=== PATIENT | male | born 2005 | race Caucasian/White ===

== ENCOUNTER 2025-03-03 23:40 | Emergency (ER) | payer MEDICAID, SELFPAY ==
--- NOTE | ~2025-03-03 | CT_ITS ---
EXAMINATION: CT abdomen pelvis w con DATE: 03/04/2025 01:55 INDICATION: Unintentional 100 pound weight loss TECHNIQUE: Computed tomography (CT) of the abdomen and pelvis was performed with 100 cc Omnipaque 350 intravenous contrast. The dose-length product was 272.87 mGy-cm. Automated exposure control and iter ative reconstruction technique were employed. COMPARISON: None. FINDINGS: Lung bases unremarkable. Heart size normal. Fatty infiltration of the liver. The spleen, pa ncreas, adrenal glands and kidneys are unremarkable. Gallbladder is contracted. Nonobstructive bowel gas pattern. No significant vascular abnormality. No lymphadenopathy. No acute osseous abnormality. M ild dextrocurvature of the lumbar spine. IMPRESSION: 1. No acute abdominal abnormality. Reviewed, dictated and finalized at location A.
[2025-03-03 23:41] VITALS: BP 145/69; PULSE 88; RESP 14; TEMP 36.4; O2SAT 99
[2025-03-04 00:19] LABS: Hematocrit 42.7 % (42.0-52.0); Hemoglobin 14.5 g/dL (14.0-18.0); Immature Granulocyte Percent A 0.1 % (0-0.5); Lymphocytes Absolute Auto 3.14 K/mm3 (0.9-3.2); Mean Corpuscular HGB Conc 34.0 g/dl (32-36); Mean Corpuscular Hemoglobin 27.5 pg (26-34); Mean Corpuscular Volume 81.0 fl (80-100); Nucleated Red Blood Cells Absolute Auto 0.000 K/mm3 (0.0-0.012); Nucleated Red Blood Cells Perc 0.0 % (0.0-0.2); Platelet Count Result 311 k/mm3 (150-375); Red Blood Count 5.27 M/mm3 (4.6-6.20); White Blood Count 7.3 K/mm3 (4.5-10.0)
[2025-03-04 00:24] VITALS: BP 122/75
[2025-03-04 00:25] VITALS: BP 118/71; BP 135/78
[2025-03-04 00:39] LABS: Alanine Aminotransferase 22 U/L (6-50); Albumin Level 5.0 g/dL (3.7-5.6); Alkaline Phosphatase 79 U/L (58-237); Anion Gap 14 mmol/L (4-12); Aspartate Amino Transferase 31 U/L (17-59); Bilirubin,Total 1.2 mg/dL (0.2-1.3); Blood Urea Nitrogen 15 mg/dL (8-21); Calcium 9.8 mg/dL (8.9-10.7); Carbon Dioxide 25 mmol/L (22-30); Chloride 101 mmol/L (98-107); Estimated CRCL calculation 117 ml/min; Estimated Glomerular Filt Rate > 60; Glucose 102 mg/dL (65-110); Lipase 101 U/L (23-300); Potassium 3.1 mmol/L (3.4-5.0); Sodium 140 mmol/L (134-143); Total Protein 8.1 g/dL (6.3-8.6)
--- NOTE | 2025-03-04 01:05 | ED.NAVMDI ---
HPI - Nausea/Vomiting/Diarrhea General Chief complaint: Nausea/Vomiting/Diarrhea Stated complaint: throwing up every hour x 1 week Time Seen by Provider: 03/04/25 00:14 History of Present Illness HPI Narrative: 19-year-old male presenting to the emergency depart with nausea vomiting persistent for last month. Patient states he has had unintentional 100 lb weight loss for last 6 months and wakes up frequently throughout the night drenched in sweat feeling like he is nauseous and having vomit. Endorsing abdominal pain as well. He was otherwise in his normal state of health last year, no fevers, diarrhea, constipation or bloody bowel movements. No history of malignancy to his knowledge. No strong family history of malignancy PE he was otherwise in his normal state of health. Endorses daily marijuana use. Tried some Pepto-Bismol and a stool softener at home without any significant relief of symptoms. States he vomits up to twice a day every day. Related Data Allergies Allergy/AdvReac Type Severity Reaction Status Date / Time No Known Allergies Allergy Unverified 06/21/14 15:43 Review of Systems Review of Systems: As reviewed above in HPI Exam Narrative: GENERAL: [Well-appearing, well-nourished, and in no acute distress.] HEAD: [Normocephalic, atraumatic.] EYES: [PERRLA and EOMI.] ENT: Nares clear, no rhinorrhea or epistaxis. Mucous membranes moist. NECK: Supple. CHEST: [Clear to auscultation. No respiratory distress.] HEART: [Regular rate and rhythm]. No murmur heard. [Normal peripheral pulses.] ABDOMEN: [Soft, nondistended], [nontender], [No rigidity or guarding] EXTREMITIES: Normal range of motion. [No edema.] SKIN: Warm, dry, no rash. NEURO: [No focal deficits]. Alert and oriented [x3.] PSYCH: [Normal mood and affect.] Course Vital Signs Vital signs: Vital Signs Temperature 36.4 C 03/03/25 23:41 Pulse Rate 88 03/03/25 23:41 Respiratory Rate 14 03/03/25 23:41 Blood Pressure 145/69 H 03/03/25 23:41 Pulse Oximetry 99 03/03/25 23:41 Oxygen Delivery Room Air 03/03/25 23:41 Temperature 36.4 C 03/03/25 23:41 Pulse Rate 88 03/03/25 23:41 Respiratory Rate 14 03/03/25 23:41 Blood Pressure 135/78 03/04/25 00:25 Pulse Oximetry 99 03/03/25 23:41 Oxygen Delivery Room Air 03/03/25 23:41 MDM - Nausea/Vomiting/Diarrhea MDM Narrative Medical decision making narrative: 19-year-old male presenting to the emergency depart with nausea vomiting persistent for last month. Patient states he has had unintentional 100 lb weight loss for last 6 months and wakes up frequently throughout the night drenched in sweat feeling like he is nauseous and having vomit. Endorsing abdominal pain as well. He was otherwise in his normal state of health last year, no fevers, diarrhea, constipation or bloody bowel movements. No history of malignancy to his knowledge. No strong family history of malignancy PE he was otherwise in his normal state of health. Endorses daily marijuana use. Tried some Pepto-Bismol and a stool softener at home without any significant relief of symptoms. States he vomits up to twice a day every day. Patient is overall not any acute physical or respiratory distress and has normal vital signs and unremarkable physical examination. He is not retching or vomiting during my initial encounter. He otherwise appears well but is stating some concerning historical elements especially the weight loss and vague abdominal discomfort. He has no clinical risk factors for malignancy but we will evaluate with a CT of the abdomen pelvis as well as blood work. He was given Zofran. CT scan shows no acute findings. No explanation for patient's symptomatology. Laboratory studies are all aside from some minor hypokalemia which was repleted with oral medication. He will need GI referral for outpatient follow-up. He was given Zofran prescription pain GI referral. Patient is safe for discharge. Medical Records Attestation: I reviewed the patient's medical records. Lab Data Attestation: I reviewed the patient's lab results. 03/04/25 00:08 03/04/25 00:08 Labs: Lab Results 03/04/25 03/04/25 03/04/25 Range/Units 00:08 00:12 00:33 WBC 7.3 (4.5-10.0) K/mm3 RBC 5.27 (4.6-6.20) M/mm3 Hgb 14.5 (14.0-18.0) g/dL Hct 42.7 (42.0-52.0) % MCV 81.0 (80-100) fl MCH 27.5 (26-34) pg MCHC 34.0 (32-36) g/dl RDW 13.1 (11.5-14.5) % Plt Count 311 (150-375) k/mm3 MPV 10.4 (7.4-10.4) fl Immature Gran % (Auto) 0.1 (0-0.5) % Neut % (Auto) 46.5 (45.5-73.1) % Lymph % (Auto) 43.0 (18.3-44.2) % Holmes % (Auto) 8.9 H (2.6-8.5) % Eos % (Auto) 1.1 (0-4.4) % Baso % (Auto) 0.4 (0.2-1.2) % Lymph # (Auto) 3.14 (0.9-3.2) K/mm3 Holmes # (Auto) 0.7 H (0.1-0.6) K/mm3 Eos # (Auto) 0.1 (0-0.3) K/mm3 Baso # (Auto) 0.0 (0.0-0.1) K/mm3 Abs Immat Gran (auto) 0.01 (0.00-0.031) K/mm3 Absolute Neuts (auto) 3.4 (1.3-6.7) K/mm3 Absolute Nucleated RBC 0.000 (0.0-0.012) K/mm3 Nucleated RBC % 0.0 (0.0-0.2) % Sodium 140 (134-143) mmol/L Potassium 3.1 L (3.4-5.0) mmol/L Chloride 101 (98-107) mmol/L Carbon Dioxide 25 (22-30) mmol/L Anion Gap 14 H (4-12) mmol/L BUN 15 (8-21) mg/dL Creatinine 0.86 (0.7-1.3) mg/dL Estim Creat Clear Calc 117 ml/min Estimated GFR > 60 (59 - ) Glucose 102 (65-110) mg/dL POC Capillary Glucose 93 (65-105) mg/dl Calcium 9.8 (8.9-10.7) mg/dL Total Bilirubin 1.2 (0.2-1.3) mg/dL AST 31 (17-59) U/L ALT 22 (6-50) U/L Alkaline Phosphatase 79 (58-237) U/L Total Protein 8.1 (6.3-8.6) g/dL Albumin 5.0 (3.7-5.6) g/dL Lipase 101 (23-300) U/L Urine Color Dark yellow (Yellow) Urine Appearance Cloudy H (Clear) Urine pH 5.5 (5.0-9.0) Ur Specific [place] 1.037 H (1.001-1.035) Urine Protein 1+ H (Negative) mg/dL Urine Glucose (UA) Negative (Negative) mg/dL Urine Ketones 1+ H (Negative) mg/dL Ur Blood (Man) Negative (Negative) Urine Nitrate Negative (Negative) Urine Bilirubin 2+ H (Negative) Urine Urobilinogen 1.0 (<2.0) mg/dL Add Ur Microanalysis Reviewed Leukocyte Esterase Rfl Trace H (Negative) CECILLE/UL Urine RBC 0-2 (0-2) /hpf Urine WBC 0-5 (0-3) /hpf Ur Squamous Epith Cells None seen (Few) /hpf Calcium Oxalate Crystal Present (None) /hpf Urine Bacteria None seen /hpf Urine Casts 3-5 Urine Mucus Present /lpf Imaging Data Attestation: I personally reviewed and interpreted this imaging study as follows: My impression: No acute abnormality Discharge Plan Discharge Clinical Impression: Nausea & vomiting, Recent unexplained weight loss Patient Disposition: Home Condition: Stable Instructions: Antibiotic Form Additional Instructions: No explanation for your symptoms was found today. Your laboratory studies are all reassuring, CT scan shows no acute abnormalities within the abdomen or pelvis. You do need to see a GI doctor regarding your symptoms for further evaluation and next steps. Will prescribe you nausea control medications. Return with any emergent concerns. Patient Language: Palestinian Prescriptions: New ondansetron 4 mg tablet,disintegrating 4 mg PO Q8H PRN (Reason: nausea and vomiting) Qty: 30 0RF Follow-up/Referrals: PHYSICIAN,[facility] [Primary Care Provider] - Harpreet Villalobos MD [Physician] - 1 Week (100lb weight loss and n/v) Time of Disposition: 03:52
[2025-03-04] MEDS: ONDANSETRON INJ 4 MG/2 ML VIAL IV PUSH (01:07)
[2025-03-04] MEDS: POTASSIUM CHLORIDE 20 MEQ ER TABLET PO (01:07)
[2025-03-04 01:42] LABS: Add Urine Microscopic? YES; Appearance Urine Cloudy (Clear); Glucose Urine UA Negative (Negative); Leukocyte Esterase Ur Trace LEU/UL (Negative); Need Manual Microscopic Reviewed; Nitrate Urine Negative (Negative); Specific Grav Ur 1.037 (1.001-1.035)
[2025-03-04 04:01] VITALS: BP 124/63; PULSE 59; RESP 18; TEMP 37; O2SAT 99
== END 2025-03-04 04:02 | disposition home or self-care (01) ==
PROVIDERS: Emergency Provider Student in an Organized Health Care Education/Training Program
DX: R11.2 Nausea with vomiting, unspecified (principal); R63.4 Abnormal weight loss
CPT/HCPCS: 36415; 74177; 80053; 81001; 82948; 83690; 85025; 96374; 99284; A9270; J2405; Q9967